=== PATIENT | male | born 1990 | race Caucasian/White ===

== ENCOUNTER 2021-06-29 10:14 | Emergency (ER) | payer OTHER ==
[~2021-06-29] VITALS: Ht 185.4 cm; Wt 118.8 kg
[2021-06-29] MEDS ORDERED: ONDANSETRON PF 4 MG/2 ML VIAL. IVP ONE ×2 (11:00→15:15)
[2021-06-29] MEDS ORDERED: IV NORMAL SALINE 1000ML BAG 1,000 ML IV ONE ×2 (11:00→12:00)
[2021-06-29] MEDS ORDERED: KETOROLAC 30 MG/ML VIAL. IVP ONE (11:00)
[2021-06-29 11:03] LABS: INFLUENZA A PATIENT NEGATIVE (NEGATIVE); INFLUENZA B PATIENT NEGATIVE (NEGATIVE)
[2021-06-29 11:04] LABS: BASO % 0 % (0-3); EOS % 0 % (0-3); HEMATOCRIT 48.4 % (39.0-53.0); HEMOGLOBIN 16.3 g/dL (13.0-17.5); LYMPH # 0.2 x10^3/uL (1.0-4.8); LYMPH % 1 % (24-48); MEAN CORPUSCULAR HEMOGLOBIN 29 pg (25-35); MEAN CORPUSCULAR HGB CONC 34 g/dL (31-37); MEAN CORPUSCULAR VOLUME 87 fL (79-100); MONO # 0.4 x10^3/uL (0.0-1.1); MONO % 3 % (0-9); NEUT # 13.2 x10^3/uL (1.8-7.7); NEUT % 95 % (31-73); PLATELET COUNT 325 x10^3/uL (140-400); RED BLOOD COUNT 5.58 x10^6/uL (4.30-5.70); RED CELL DISTRIBUTION WIDTH 13.9 % (11.5-14.5); WHITE BLOOD COUNT 13.8 x10^3/uL (4.0-11.0)
[2021-06-29 11:05] LABS: CALCIUM 9.1 mg/dL (8.5-10.1); POTASSIUM 3.8 mmol/L (3.5-5.1)
[2021-06-29 11:07] LABS: ALBUMIN 4.3 g/dL (3.4-5.0); TOTAL BILIRUBIN 0.6 mg/dL (0.2-1.0); TOTAL PROTEIN 8.6 g/dL (6.4-8.2)
[2021-06-29] MEDS ORDERED: CONTRAST GIVEN. MC PRN (11:45)
[2021-06-29] MEDS ORDERED: IOHEXOL 300 MG/ML 100ML VIAL. IV ONE (11:45)
[2021-06-29] MEDS ORDERED: MORPHINE SULFATE 4 MG/ML INJ. IVP ONE (12:00)
--- NOTE | 2021-06-29 12:10 | RAD ---
CT of the abdomen and pelvis with contrast 06/29/2021 12:05 PM Indication: Reason: abdominal pain / Spl. Instructions: 75ML OMNI 300 / History: Comparison study: None Technique: Multidetector CT imaging of the abdomen and pelvis was performed following the administrat ion of IV contrast. Findings: The partially visualized lung bases demonstrate no acute abnormality. The liver, gallbladder, spleen, bilateral adrenal glands, bilateral kidneys, and pancreas, demonstrat e no acute abnormality. Probable small cyst in the superior pole left kidney. There is no bowel obstruction. The distal small bowel in the entirety of the colon are fluid-filled. While nonspecific appearance can be associated with diarrheal states or enteritis. The appendix is un remarkable in appearance. No free fluid or free air is seen in the abdomen or pelvis. No acute osse ous changes are identified. Impression: 1. Liquid stool throughout the distal small bowel and colon which is nonspecific but can be associate d with diarrheal states/enteritis. 2.Otherwise, no evidence of acute intra-abdominal abnormality is identified. CT DOSING PQRS STATEMENT: One or more of the following individualized dose reduction techniques were utilized for this examinat ion: 1. Automated exposure control 2. Adjustment of the mA and/or kV according to patient size 3. Use of iterative reconstruction technique Electronically signed by: Brent Martell MD (06/29/2021 12:08 PM) [id number]
--- NOTE | 2021-06-29 12:49 | PHYS DOC ---
Past Medical History Past Surgical History: No Surgical History General Adult EDM: Chief Complaint: NAUSEA/VOMITING/DIARRHEA HPI: HPI: Patient is a 30 year old male who present to ER for evaluation of nausea vomiting diarrhea and abdominal cramping since last night. Patient has more than 8 episodes of diarrhea already since last night. Patient feels weak and dehydrated. Patient did a rapid Covid test at home and came back negative. Patient said he was fully vaccinated for COVID-19. Patient denies any fever, no chills. Patient denies any blood in his stool. Patient denies any been on antibiotics recently. Review of Systems: Review of Systems: Constitutional: Denies fever or chills. [] Eyes: Denies change in visual acuity. [] HENT: Denies nasal congestion or sore throat. [] Respiratory: Denies cough or shortness of breath. [] Cardiovascular: Denies chest pain or edema. [] GI: Positive for abdominal pain with nausea vomiting and diarrhea : Denies dysuria. [] Musculoskeletal: Denies back pain or joint pain. [] Integument: Denies rash. [] Neurologic: Denies headache, focal weakness or sensory changes. [] Endocrine: Denies polyuria or polydipsia. [] Lymphatic: Denies swollen glands. [] Psychiatric: Denies depression or anxiety. [] Heart Score: C/O Chest Pain: N/A Risk Factors: Risk Factors: DM, Current or recent (<one month) smoker, HTN, HLP, family history of CAD, obesity. Risk Scores: Score 0 - 3: 2.5% MACE over next 6 weeks - Discharge Home Score 4 - 6: 20.3% MACE over next 6 weeks - Admit for Clinical Observation Score 7 - 10: 72.7% MACE over next 6 weeks - Early Invasive Strategies Current Medications: Current Medications Medications (Trade) Dose Ordered Sig/Jeane Start Time Stop Time Status Last Admin Dose Admin Info (CONTRAST GIVEN -- Rx MONITORING) 1 each PRN DAILY PRN 06/29/21 11:45 07/01/21 11:44 Iohexol (Omnipaque 300 Mg/ml) 75 ml 1X ONCE 06/29/21 11:45 06/29/21 11:46 DC 06/29/21 11:47 75 ML Ketorolac Tromethamine (Toradol 30mg Vial) 30 mg 1X ONCE 06/29/21 11:00 2/10/22 11:01 DC 06/29/21 11:00 30 MG Levofloxacin/ Dextrose 150 ml @ 100 mls/hr 1X ONCE 06/29/21 12:45 06/29/21 14:14 06/29/21 12:30 100 MLS/HR Morphine Sulfate (Morphine Sulfate) 4 mg 1X ONCE 06/29/21 12:00 06/29/21 12:01 DC 06/29/21 11:45 4 MG Ondansetron HCl (Zofran) 4 mg 1X ONCE 06/29/21 11:00 06/29/21 11:01 DC 06/29/21 11:00 4 MG Sodium Chloride 1,000 ml @ 1,000 mls/hr 1X ONCE 06/29/21 12:00 06/29/21 12:59 Allergies: Allergies: Allergies Coded Allergies Type Severity Reaction Last Updated Verified No Known Drug Allergies 06/29/21 No Physical Exam: PE: Constitutional: Well developed, well nourished, no acute distress, non-toxic appearance. [] HENT: Normocephalic, atraumatic, bilateral external ears normal, oropharynx moist, no oral exudates, nose normal. [] Eyes: PERRLA, EOMI, conjunctiva normal, no discharge. [] Neck: Normal range of motion, no tenderness, supple, no stridor. [] Cardiovascular: Sinus tachycardia with regular rhythm, no murmur [] Lungs & Thorax: Bilateral breath sounds clear to auscultation [] Abdomen: Bowel sounds normal, soft, there is tenderness to palpation diffusely, no masses, no pulsatile masses. [] Skin: Warm, dry, no erythema, no rash. [] Back: No tenderness, no CVA tenderness. [] Extremities: No tenderness, no cyanosis, no clubbing, ROM intact, no edema. [] Neurologic: Alert and oriented X 3, normal motor function, normal sensory function, no focal deficits noted. [] Psychologic: Affect normal, judgement normal, mood normal. [] Current Patient Data: Labs: Laboratory Tests Test 06/29/21 10:20 06/29/21 10:24 White Blood Count 13.8 x10^3/uL Red Blood Count 5.58 x10^6/uL Hemoglobin 16.3 g/dL Hematocrit 48.4 % Mean Corpuscular Volume 87 fL Mean Corpuscular Hemoglobin 29 pg Mean Corpuscular Hemoglobin Concent 34 g/dL Red Cell Distribution Width 13.9 % Platelet Count 325 x10^3/uL Neutrophils (%) (Auto) 95 % Lymphocytes (%) (Auto) 1 % Monocytes (%) (Auto) 3 % Eosinophils (%) (Auto) 0 % Basophils (%) (Auto) 0 % Neutrophils # (Auto) 13.2 x10^3/uL Lymphocytes # (Auto) 0.2 x10^3/uL Monocytes # (Auto) 0.4 x10^3/uL Eosinophils # (Auto) 0.0 x10^3/uL Basophils # (Auto) 0.0 x10^3/uL Segmented Neutrophils % 74 % Band Neutrophils % 15 % Lymphocytes % 4 % Monocytes % 7 % Platelet Estimate Adequate Sodium Level 140 mmol/L Potassium Level 3.8 mmol/L Chloride Level 104 mmol/L Carbon Dioxide Level 21 mmol/L Anion Gap 15 Blood Urea Nitrogen 21 mg/dL Creatinine 1.0 mg/dL Estimated GFR (Cockcroft-Gault) 89.0 BUN/Creatinine Ratio 21 Glucose Level 135 mg/dL Calcium Level 9.1 mg/dL Magnesium Level 2.0 mg/dL Total Bilirubin 0.6 mg/dL Aspartate Amino Transf (AST/SGOT) 31 U/L Alanine Aminotransferase (ALT/SGPT) 49 U/L Alkaline Phosphatase 61 U/L Total Protein 8.6 g/dL Albumin 4.3 g/dL Albumin/Globulin Ratio 1.0 Influenza Type A Antigen Negative Influenza Type B Antigen Negative Current Medications Medications (Trade) Dose Ordered Sig/Jeane Route PRN Reason Start Time Stop Time Status Last Admin Dose Admin Sodium Chloride 1,000 ml @ 1,000 mls/hr 1X ONCE IV 06/29/21 11:00 06/29/21 11:59 DC 06/29/21 11:00 Ondansetron HCl (Zofran) 4 mg 1X ONCE IVP 06/29/21 11:00 06/29/21 11:01 DC 06/29/21 11:00 Ketorolac Tromethamine (Toradol 30mg Vial) 30 mg 1X ONCE IVP 06/29/21 11:00 06/29/21 11:01 DC 06/29/21 11:00 Sodium Chloride 1,000 ml @ 1,000 mls/hr 1X ONCE IV 06/29/21 12:00 06/29/21 12:59 DC 06/29/21 15:00 Morphine Sulfate (Morphine Sulfate) 4 mg 1X ONCE IVP 06/29/21 12:00 06/29/21 12:01 DC 06/29/21 11:45 Iohexol (Omnipaque 300 Mg/ml) 75 ml 1X ONCE IV 06/29/21 11:45 06/29/21 11:46 DC 06/29/21 11:47 Info (CONTRAST GIVEN -- Rx MONITORING) 1 each PRN DAILY PRN MC SEE COMMENTS 06/29/21 11:45 07/01/21 11:44 Levofloxacin/ Dextrose 150 ml @ 100 mls/hr 1X ONCE IV 06/29/21 12:45 06/29/21 14:14 DC 06/29/21 12:30 Metoclopramide HCl (Reglan Vial) 10 mg 1X ONCE IVP 06/29/21 14:30 06/29/21 14:31 DC 06/29/21 15:00 Ondansetron HCl (Zofran) 4 mg 1X ONCE IVP 06/29/21 15:15 06/29/21 15:16 DC 06/29/21 15:12 Laboratory Tests Test 06/29/21 10:20 06/29/21 10:24 White Blood Count 13.8 x10^3/uL (4.0-11.0) H Red Blood Count 5.58 x10^6/uL (4.30-5.70) Hemoglobin 16.3 g/dL (13.0-17.5) Hematocrit 48.4 % (39.0-53.0) Mean Corpuscular Volume 87 fL (79-100) Mean Corpuscular Hemoglobin 29 pg (25-35) Mean Corpuscular Hemoglobin Concent 34 g/dL (31-37) Red Cell Distribution Width 13.9 % (11.5-14.5) Platelet Count 325 x10^3/uL (140-400) Neutrophils (%) (Auto) 95 % (31-73) H Lymphocytes (%) (Auto) 1 % (24-48) L Monocytes (%) (Auto) 3 % (0-9) Eosinophils (%) (Auto) 0 % (0-3) Basophils (%) (Auto) 0 % (0-3) Neutrophils # (Auto) 13.2 x10^3/uL (1.8-7.7) H Lymphocytes # (Auto) 0.2 x10^3/uL (1.0-4.8) L Monocytes # (Auto) 0.4 x10^3/uL (0.0-1.1) Eosinophils # (Auto) 0.0 x10^3/uL (0.0-0.7) Basophils # (Auto) 0.0 x10^3/uL (0.0-0.2) Platelet Estimate Pending Sodium Level 140 mmol/L (136-145) Potassium Level 3.8 mmol/L (3.5-5.1) Chloride Level 104 mmol/L (98-107) Carbon Dioxide Level 21 mmol/L (21-32) Anion Gap 15 (6-14) H Blood Urea Nitrogen 21 mg/dL (8-26) Creatinine 1.0 mg/dL (0.7-1.3) Estimated GFR (Cockcroft-Gault) 89.0 BUN/Creatinine Ratio 21 (6-20) H Glucose Level 135 mg/dL (70-99) H Calcium Level 9.1 mg/dL (8.5-10.1) Magnesium Level 2.0 mg/dL (1.8-2.4) Total Bilirubin 0.6 mg/dL (0.2-1.0) Aspartate Amino Transferase (AST) 31 U/L (15-37) Alanine Aminotransferase (ALT) 49 U/L (16-63) Alkaline Phosphatase 61 U/L (46-116) Total Protein 8.6 g/dL (6.4-8.2) H Albumin 4.3 g/dL (3.4-5.0) Albumin/Globulin Ratio 1.0 (1.0-1.7) Influenza Type A Antigen Negative (NEGATIVE) Influenza Type B Antigen Negative (NEGATIVE) Laboratory Tests 06/29/21 10:20 Laboratory Tests 06/29/21 10:20 Vital Signs: Vital Signs Date Time Temp Pulse Resp B/P (MAP) Pulse Ox O2 Delivery O2 Flow Rate FiO2 06/29/21 12:30 111 15 140/82 (101) 97 Room Air 06/29/21 10:20 98.7 98.7 EKG: EKG: [] Radiology/Procedures: Radiology/Procedures: [facility] [address] [place] [address] IMAGING REPORT Signed PATIENT: LUZ MARIA WILLIS ACCOUNT: [id number] : 1990 LOCATION: ER AGE: 30 SEX: M EXAM STATUS: REG ER ORD. PHYSICIAN: RENY KAYE DO REASON: abdominal pain PROCEDURE: CT ABD PELV W/ IV CONTRST ONLY CT of the abdomen and pelvis with contrast 06/29/2021 12:05 PM Indication: Reason: abdominal pain / Spl. Instructions: 75ML OMNI 300 / History: Comparison study: None Technique: Multidetector CT imaging of the abdomen and pelvis was performed following the administration of IV contrast. Findings: The partially visualized lung bases demonstrate no acute abnormality. The liver, gallbladder, spleen, bilateral adrenal glands, bilateral kidneys, and pancreas, demonstrate no acute abnormality. Probable small cyst in the superior pole left kidney. There is no bowel obstruction. The distal small bowel in the entirety of the c olon are fluid-filled. While nonspecific appearance can be associated with diarrheal states or enteritis. The appendix is unremarkable in appearance. No free fluid or free air is seen in the abdomen or pelvis. No acute osseous changes are identified. Impression: 1. Liquid stool throughout the distal small bowel and colon which is nonspecific but can be associated with diarrheal states/enteritis. 2.Otherwise, no evidence of acute intra-abdominal abnormality is identified. CT DOSING PQRS STATEMENT: One or more of the following individualized dose reduction techniques were utilized for this examination: 1. Automated exposure control 2. Adjustment of the mA and/or kV according to patient size 3. Use of iterative reconstruction technique Electronically signed by: Brent Sauer MD (06/29/2021 12:08 PM) [id number] DICTATED and SIGNED BY: BRENT SAUER MD DATE: 06/29/21 [id number] 0 Course & Med Decision Making: Course & Med Decision Making Pertinent Labs and Imaging studies reviewed. (See chart for details) Patient is a 30-year-old male who present to ER due to nausea vomiting, diarrhea, abdominal pain. CT scan head abdomen pelvic consistent with gastroenteritis. Patient was given IV fluid in the ER, he was given IV nausea medication and pain medication. Patient felt much better. Patient will be discharged home with a short course of antibiotic and nausea medication. Patient will need to follow-up with a family physician as needed this week. Patient was tested for COVID-19 the rapid test came back negative so far. Al[place]on Disclaimer: Al[place]on Disclaimer: This electronic medical record was generated, in whole or in part, using a voice recognition dictation system. Departure Departure Impression: Primary Impression: Gastroenteritis Additional Impression: Dehydration Disposition: HOME / SELF CARE / HOMELESS Condition: IMPROVED Referrals: NON,STAFF (PCP) Follow up with your doctor as needed Patient Instructions: Dehydration, Adult, Viral Gastroenteritis Additional Instructions: Thank you for visiting our Emergency Department. We appreciate you trusting us with your care. If any additional problems come up don't hesitate to return to visit us. Please follow up with your primary care provider so they can plan additional care if needed and know about the problem that you had. If symptoms worsen come back to the Emergency Department. Any concerning symptoms that start such as chest pain, shortness of air, weakness or numbness on one side of the body, running high fevers or any other concerning symptoms return to the ER. Scripts Sulfamethoxazole/Trimethoprim (BACTRIM DS TABLET) 1 Each Tablet 1 TAB PO BID for 5 Days, #10 TAB 0 Refills Prov: RENY KAYE DO 06/29/21 Metoclopramide Hcl (REGLAN) 10 Mg Tablet 1 TAB PO QID PRN for NAUSEA for 5 Days, #20 TAB 0 Refills before food and bedtime Prov: RENY KAYE DO 06/29/21 RENY KAYE DO Jun 29, 2021 12:49
[2021-06-29 13:11] LABS: % BANDS 15 % (0-9); % LYMPHS 4 % (24-48); % MONOS 7 % (0-10); % SEGS 74 % (35-66); PLT ESTIMATE ADEQUATE (ADEQUATE)
[2021-06-29] MEDS ORDERED: METOCLOPRAMIDE HCL 10 MG/2 ML VIAL. IVP ONE (14:30)
[2021-06-29] MEDS ORDERED: SULF1TAB24 PO (17:08)
[2021-06-29] MEDS ORDERED: METO10TA81 PO (17:08)
[2021-06-29 17:18] VITALS: BP 135/62
--- NOTE | 2021-06-30 17:04 | NUR ---
IP: Attempted to contact pt concerning covid results. No answer, left a voicemail to return my call.
--- NOTE | 2021-07-01 14:25 | NUR ---
IP: Attempted a second time to contact pt concerning covid results. No answer, left a second voicemail to return the call.
== END 2021-06-29 17:21 | disposition home or self-care (01) ==
LOC: ER 10:14
DX: K52.9 Noninfective gastroenteritis and colitis, unspecified (principal); E86.0 Dehydration; Z20.822 Contact with and (suspected) exposure to COVID-19; R00.0 Tachycardia, unspecified
CPT/HCPCS: 74177; 80053; 83735; 85007; 85025; 87428; 96361; 96365; 96366; 96375; 96376; 99285; C9803; J1885; J1956; J2270; J2405; J2765; J7030; Q9967; U0003